=== PATIENT | male | born 1950 | race Caucasian/White ===

== ENCOUNTER 2024-01-11 06:24 | Day surgery (SDC) | payer MEDICARE, OTHER, SELFPAY ==
[2024-01-08 15:31] VITALS: BMI 34.9
[2024-01-11 06:56] VITALS: BMI 37.5
[2024-01-11 07:10] VITALS: BP 127/45; PULSE 73; RESP 16; TEMP 36.5; O2SAT 97
--- NOTE | 2024-01-11 07:29 | HO.ANESPROP2 ---
HPI - Anesthesia Eval Consult details Narrative: 73 yo male patient for Colonoscopy. Patient with h/o aortic aneurysm. Awaiting surgery. Was scheduled for cardiac cath on Monday01/09/24 to assess coronary arteries but this was cancelled pending colonoscopy as patient developed [place] bleeding. Cardiology had been watching aneurysm for a few years but patient was diagnosed with Prostate Cancer and underwent chemo which he finished in 10/2022 followed by radiation- finished 02/2023 [facility] Past Medical History Medical History (Updated 01/11/24 @ 07:53 by Reny Lancaster MD) Sleep apnea treated with continuous positive airway pressure (CPAP) Diabetes Port-A-Cath in place Ascending aortic aneurysm Iron deficiency anemia Prostate cancer Sleep apnea Elevated cholesterol HTN (hypertension) Family History Family history of problems with anesthesia: No Surgical History Surgical History (Updated 01/08/24 @ 15:26 by Tricia Palencia RN) History of spinal surgery Hx of left inguinal hernia repair Hx of right inguinal hernia repair History of esophagogastroduodenoscopy (EGD) H/O colonoscopy History of Problems with Anesthesia: No Social History Social History (Updated 01/08/24 @ 15:20 by Tricia Palencia RN) Household Members: Spouse Patient Tobacco Use Status: Former Tobacco user Use of substances other than those prescribed or required for medical reasons: No Are you DNR?: No Advance Directives: No Advance Directives Information Provided: Yes Meds Allergies Allergy/AdvReac Type Severity Reaction Status Date / Time No Known Allergies Allergy Verified 01/11/24 06:59 Active Medications: Current Medications Sodium Biphosphate/Sodium Phosphate (Sodium Phosphate,Sullivan-Dibasic 133 Ml Enema) 133 ml [place] ONCE PRN PRN Reason: Poor Colonoscopy Prep Results Home Medications Medication Instructions Recorded Confirmed Last Taken Type aspirin 81 mg tablet,delayed 81 mg PO DAILY 01/08/24 01/08/24 Unknown History release atorvastatin 40 mg tablet 40 mg PO BEDTIME 01/08/24 01/08/24 Unknown History cholecalciferol (vitamin D3) 25 25 mcg PO DAILY 01/08/24 01/08/24 Unknown History mcg (1,000 unit) capsule (Vitamin D3) fluticasone propionate 50 1 spray intranasal DAILY 01/08/24 01/08/24 Unknown History mcg/actuation nasal spray,suspension leuprolide (3 month) 22.5 mg (3 22.5 mg subcut [id number] 01/08/24 01/08/24 Unknown History month) subcutaneous syringe ([place]) metoprolol tartrate 50 mg tablet 50 mg PO BID 01/08/24 01/08/24 01/11/24 History multivitamin 1 tab PO DAILY 01/08/24 01/08/24 Unknown History nitroglycerin 0.4 mg sublingual 0.4 mg sublingual Q5M PRN Chest 01/08/24 01/08/24 Unknown History tablet (Nitrostat) Pain oxybutynin chloride 15 mg 15 mg PO DAILY 01/08/24 01/08/24 Unknown History tablet,extended release 24 hr vitamin B complex 1 tab PO DAILY 01/08/24 01/08/24 Unknown History Exam Height,Weight and Vital Signs: Height 5 ft 1 in Weight 89.981 kg Last Vital Signs Temp 97.7 F 01/11/24 07:10 Pulse 73 01/11/24 07:10 Resp 16 01/11/24 07:10 BP 127/45 L 01/11/24 07:10 Pulse Ox 97 01/11/24 07:10 O2 Del Method Room Air 01/11/24 07:10 Airway Mallampati Class: II (Receding chin) TM Dist: >3cm Neck ROM: Full Loose/Missing/Broken Teeth: No (Denies broken, loose, missing teeth) Heart: RRR Lungs: CTAB Assessment and Plan Assessment Anesthesia Assessment: Anesthesia Plan Discussed and Chart Reviewed Final Anesthetic Review Family History of Problems with Anesthesia: No History of Problems with Anesthesia: No NPO: Yes ASA Class: III Final Preanesthetic Review: No Changes in Pt Med Stat, Meds/Allgs Chart Reviewed, Consent Obtained/Reviewed and Anes Risks/Benef Reviewed Patient Risk: Intermediate Procedure Risk: Low Assessment/Block/Sedation in SS: Assess/Block/Sedation-SS Anesthetic Plan Anesthetic Plan: MAC: and TIVA Disposition: Standard PACU
--- NOTE | 2024-01-11 07:36 | PC.NURSE ---
patient had to be evaluated from anesthesia prior to getting ready for his colonoscopy due to his medical cardiac history.
[2024-01-11] MEDS: Lactated Ringers 1,000 ML 80 ML IVCONT (07:50)
[2024-01-11 08:33] VITALS: BP 98/42; PULSE 61; RESP 15; TEMP 36.7; O2SAT 96
[2024-01-11 08:48] VITALS: BP 128/49; RESP 16; TEMP 36.7; O2SAT 98
--- NOTE | 2024-01-11 08:48 | PM.OP ---
Brief Operative Note Date of Service: 01/11/24 Pre-op diagnosis: Rectal bleeding Post-op diagnosis: other (Radiation proctitis with rectal telangiectasias) Procedure: Colonoscopy to the cecum and TI Surgeon: Andrew Morales MD Was an Gis Analyst Developer used for this Procedure?: No Estimated blood loss (mL): 0 Pathology: none sent Condition: stable Disposition: PACU
--- NOTE | 2024-01-11 10:12 | OP_ITS ---
DATE OF SERVICE: 01/11/2024 SURGEON: Andrew Morales MD INDICATIONS: The patient presents for evaluation of intermittent rectal bleeding. Full consent has been obtained from him for this, including risks of bleeding and perforation. PREOPERATIVE DIAGNOSIS: Rectal bleeding. POSTOPERATIVE DIAGNOSIS: PROCEDURE PERFORMED: Colonoscopy to the cecum and terminal ileum. ESTIMATED BLOOD LOSS: COMPLICATIONS: ANESTHESIA: Monitored anesthesia care. ASSISTANTS: SPECIMENS: POSTOPERATIVE DIAGNOSES: Rectal bleeding, radiation proctitis with rectal telangiectasias, diverticulosis and internal hemorrhoids. DESCRIPTION OF PROCEDURE: The patient was placed in the left lateral decubitus position. The digital rectal exam revealed no abnormalities. The Olympus video pediatric colonoscope was entered into the rectum and advanced easily to the cecum. Once in the cecum, I did identify normal-appearing cecal pouch with appendiceal orifice and a normal-appearing ileocecal valve. The terminal ileum was cannulated and appeared normal. The scope was withdrawn back in the colon. The entire cecum and ileocecal valve appeared normal. The scope was slowly withdrawn assessing all mucosal surfaces carefully. For the most part, preparation was excellent throughout the colon although there were some small areas of liquid stool, which had to be suctioned and irrigated as best as possible. I did not visualize any sign of colitis, polyps, nor angiodysplasias. There was a mild amount of sigmoid diverticulosis. In the rectum, both in the forward viewing and retroflexed positions were multiple telangiectasias with some minimal friability. There was no evidence of any ulceration nor mass. Some internal hemorrhoids were noted as well. The telangiectasias involved at least the mid to distal rectum. The scope was withdrawn from the patient. He tolerated the procedure well and was returned to the recovery area in stable condition. IMPRESSION: 1. Radiation proctitis with associated rectal telangiectasias. 2. Diverticulosis. 3. Internal hemorrhoids. PLAN: At this point the patient reports that while things have improved. He is still having occasional episodes of urgency and some small amounts of red blood with his bowel movement. He is not having any rectal pain. He describes about 2 or 3 bowel movements per day. He has been off his aspirin for 1 week now in regard to this procedure and he has noticed less bleeding as he has remained off the aspirin. I did advise him to avoid all NSAIDs long-term. I did advise him to continue stay off his aspirin but to check with his detective narcotics and vice, Dr. eTrrell, to see how long he can stay off the aspirin from a cardiac standpoint. I advised the patient that the longer he can stay off the aspirin the better it will be from the rectal bleeding standpoint, but his detective narcotics and vice needs to let him know how long he can stay off of it from a cardiac standpoint. I advised him that I will send over a prescription for a mesalamine suppository to start every night at bedtime to see if that can help decrease any bleeding and/or proctitis type symptoms. If the insurance does not cover that, we would try something different such as a Proctofoam or cortisone suppository. If he does continue to have problems from this issue, then we would need to consider some type of endoscopic ablation with either APC or radioablation. If his symptoms are only minimal then we could probably just observe things and then have him undergo his planned cardiac procedures. From a screening standpoint I do not think he would need any further screening colonoscopies. He will follow up in the office as well. This has all been discussed with his . MD GAUTAM Benítez/JHONNY / [id number]
== END 2024-01-11 09:17 | disposition home or self-care (01) ==
PROVIDERS: PCP Family Medicine; Visit Provider Internal Medicine
PROC: 0DJD8ZZ Inspection of Lower Intestinal Tract, Via Natural or Artificial Opening Endoscopic (ICD-10-PCS; CPT 45378; principal; 2024-01-11 07:30)
DX: K62.5 Hemorrhage of anus and rectum (principal); K62.7 Radiation proctitis; Y84.2 Radiological procedure and radiotherapy as the cause of abnormal reaction of the patient, or of later complication, without mention of misadventure at the time of the procedure; K57.30 Diverticulosis of large intestine without perforation or abscess without bleeding; K64.8 Other hemorrhoids; R15.2 Fecal urgency; I10 Essential (primary) hypertension; I71.21 Aneurysm of the ascending aorta, without rupture; E78.5 Hyperlipidemia, unspecified; G47.33 Obstructive sleep apnea (adult) (pediatric); Z85.46 Personal history of malignant neoplasm of prostate; Z79.82 Long term (current) use of aspirin; Z79.899 Other long term (current) drug therapy; Z99.89 Dependence on other enabling machines and devices; Z85.89 Personal history of malignant neoplasm of other organs and systems; Z92.3 Personal history of irradiation; Z92.21 Personal history of antineoplastic chemotherapy; Z87.891 Personal history of nicotine dependence
CPT/HCPCS: 45378; J2704